=== PATIENT | male | born 1955 | race Caucasian/White ===

== ENCOUNTER → 2018-03-15 | Outpatient (CLI) | payer MEDICARE ==
[2018-03-15 10:44] LABS: Cholesterol 101 mg/dL (<200); HDL Cholesterol 34 mg/dL (40-60); LDL Cholesterol,Calculated 52 mg/dL (0-99); Triglycerides 74 mg/dL (<150)
== END | disposition home or self-care (01) ==
LOC: LABWHC1 08:50
PROVIDERS: ATTEND Internal Medicine Cardiovascular Disease
DX: I25.10 Atherosclerotic heart disease of native coronary artery without angina pectoris (principal)
CPT/HCPCS: 36415; 80061

== ENCOUNTER → 2020-03-20 | Outpatient (CLI) | payer MEDICARE ==
[2020-03-20 22:07] LABS: African American GFR (CKD) 72.6 (60.0-200.0); Albumin/Globulin Ratio 1.67 (1.60-3.17); Anion Gap 4.3 mmol/L (4.00-12.00); BUN/Creat Ratio 19.17 Ratio (12.00-20.00); Calcium 9.5 mg/dL (8.7-10.3); Carbon Dioxide 31.7 mmol/L (21.6-31.8); Chol/HDL Ratio 3.72; Globulin 2.4 g/dL (1.6-3.3); LDL Cholesterol,Calculated 45.2 mg/dL (0.0-131.0); Non-African American GFR(CKD) 62.6 (60.0-200.0); Potassium 4.1 mmol/L (3.5-5.5); Total Bilirubin 1.5 mg/dL (0.2-1.2); Total Protein 6.4 g/dL (6.2-8.2); VLDL Calculation 22.8 mg/dL (5.00-40.00)
== END | disposition home or self-care (01) ==
LOC: LABWHC1 11:06
PROVIDERS: ATTEND Internal Medicine Interventional Cardiology
DX: E78.2 Mixed hyperlipidemia (principal)
CPT/HCPCS: 36415; 80053; 80061

== ENCOUNTER → 2020-09-11 | Outpatient (CLI) | payer MEDICARE ==
[2020-09-11 23:17] LABS: African American GFR (CKD) 89.9 (60.0-200.0); Albumin 4.2 g/dL (3.80-4.90); Anion Gap 10.5 mmol/L (4.00-12.00); Calcium 9.3 mg/dL (8.7-10.3); Carbon Dioxide 20.5 mmol/L (21.6-31.8); Chol/HDL Ratio 3.37; Globulin 2.1 g/dL (1.6-3.3); LDL Cholesterol,Calculated 51.2 mg/dL (0.0-131.0); Non-African American GFR(CKD) 77.5 (60.0-200.0); Potassium 4.6 mmol/L (3.5-5.5); Total Bilirubin 1.3 mg/dL (0.2-1.2); Total Protein 6.3 g/dL (6.2-8.2); VLDL Calculation 19.8 mg/dL (5.00-40.00)
== END | disposition home or self-care (01) ==
LOC: LABWHC1 11:18
PROVIDERS: ATTEND Nurse Practitioner Adult Health
DX: E78.2 Mixed hyperlipidemia (principal); I10 Essential (primary) hypertension
CPT/HCPCS: 36415; 80053; 80061

== ENCOUNTER → 2021-03-27 | Outpatient (CLI) | payer MEDICARE ==
[2021-03-27 23:07] LABS: African American GFR (CKD) 99.6 (60.0-200.0); Albumin 3.9 g/dL (3.8-4.9); Albumin/Globulin Ratio 1.48 (1.60-3.17); Anion Gap 11.6 mmol/L (4.00-12.00); BUN/Creat Ratio 12.27 Ratio (12.00-20.00); Blood Urea Nitrogen 11.2 mg/dL (9.0-27.0); Calcium 9.5 mg/dL (8.7-10.3); Chol/HDL Ratio 2.39 Ratio; Globulin 2.6 g/dL (1.6-3.3); HDL Cholesterol 34.1 mg/dL (40.00-60.00); LDL Cholesterol,Calculated 31.2 mg/dL (0.0-131.0); Potassium 4.8 mmol/L (3.5-5.5); Total Bilirubin 0.8 mg/dL (0.30-1.20); Total Protein 6.5 g/dL (6.2-8.2); Triglycerides 81.2 mg/dL (0.00-149.00); VLDL Calculation 16.24 mg/dL (5.00-40.00)
== END | disposition home or self-care (01) ==
LOC: LABWHC1 08:35
PROVIDERS: ATTEND Nurse Practitioner Adult Health
DX: E78.2 Mixed hyperlipidemia (principal)
CPT/HCPCS: 36415; 80053; 80061

== ENCOUNTER → 2022-03-23 | Outpatient (CLI) | payer MEDICARE ==
[2022-03-23 11:35] LABS: ALT 12 U/L (10-49); AST 20 U/L (14-35); African American GFR (CKD) 101.4 (60.0-200.0); Albumin 3.9 g/dL (3.8-4.9); Albumin/Globulin Ratio 1.34 (1.60-3.17); Alkaline Phosphatase 131 U/L (41-126); BUN/Creat Ratio 15.56 Ratio (12.00-20.00); Calcium 9.3 mg/dL (8.7-10.3); Carbon Dioxide 24.9 mmol/L (20.0-27.5); Chloride 108 mmol/L (96-109); Chol/HDL Ratio 2.68 Ratio; Globulin 2.9 g/dL (1.6-3.3); Glucose 108 mg/dL (70-110); LDL Cholesterol,Calculated 37.6 mg/dL (0.0-131.0); Non-African American GFR(CKD) 87.5 (60.0-200.0); Potassium 4.4 mmol/L (3.5-5.5); Sodium 145 mmol/L (135-145); Total Protein 6.8 g/dL (6.2-8.2); VLDL Calculation 19.08 mg/dL (5.00-40.00)
== END | disposition home or self-care (01) ==
LOC: LABWHC1 08:00
PROVIDERS: ATTEND Internal Medicine Interventional Cardiology
DX: E78.2 Mixed hyperlipidemia (principal)
CPT/HCPCS: 36415; 80053; 80061

== ENCOUNTER → 2022-09-30 | Outpatient (CLI) | payer OTHER ==
[2022-09-30 15:51] LABS: ALT 24 U/L (10-49); AST 19 U/L (14-35); Chol/HDL Ratio 2.59 Ratio
== END | disposition home or self-care (01) ==
LOC: LABWHC1 06:59
PROVIDERS: ATTEND Internal Medicine Interventional Cardiology
DX: E78.2 Mixed hyperlipidemia (principal)
CPT/HCPCS: 36415; 80061; 84450; 84460

== ENCOUNTER 2022-11-10 09:25 | Emergency (ER) | payer MEDICARE, OTHER ==
[2022-11-10] MEDS ORDERED: SODIUM CHLORIDE 0.9% 1,000 ML IV STA (10:00)
[2022-11-10] MEDS ORDERED: MORPHINE SULFATE 4 MG/ML SYRINGE IVP STA (10:01)
[2022-11-10] MEDS ORDERED: KETOROLAC 15 MG/ML 1 ML VIAL IVP STA ×2 (10:01→14:45)
--- NOTE | 2022-11-10 10:21 | ED ---
Abdominal Pain HPI - General Chief Complaint: Abdominal Pain Stated Complaint: Groining/back pain Time Seen by Provider: 11/10/22 09:32 Source: patient, RN notes reviewed Mode of arrival: ambulatory Limitations: no limitations - History of Present Illness Initial Comments: This is a 67-year-old male who presents to the emergency department for pain in the right lower back radiating to the right groin. States that this started about a week ago, however yesterday it became severe. Reports a history of hernias and states that this feels the same. Denies any changes in bowel or bladder habits. He does have an appointment with Gen. surgery later this month, but states that he cannot wait this long. He has also not been definitively diagnosed with a new hernia in this area. Prior hernias have required surgical repair. However, a new hernia in this location has not been diagnosed. He was cleaning cement out of a ditch last week, shortly before symptoms started. He is taking Tylenol at home with no relief in symptoms. Denies any fevers, chills, sore throat, cough, dyspnea, chest pain, palpitations, nausea, vomiting, diarrhea, or headaches. MD Complaint: abdominal pain, other (Right sided back pain) Onset/Timin -: week(s) - Related Data Home Medications Medication Instructions Recorded Confirmed Aspirin EC [Ecotrin Low Dose] 81 mg PO HS 11/10/22 11/10/22 Atorvastatin Calcium [Lipitor] 40 mg PO HS 11/10/22 11/10/22 Nitroglycerin Sl Tabs [Nitrostat] 0.4 mg SUBLINGUAL Q5M PRN 11/10/22 11/10/22 amLODIPine [Norvasc] 10 mg PO HS 11/10/22 11/10/22 carvediloL [Coreg] 25 mg PO BID 11/10/22 11/10/22 lisinopriL [Prinivil] 20 mg PO BID 11/10/22 11/10/22 Previous Rx's Medication Instructions Recorded HYDROcodone/APAP 7.5-325MG [[place] 1 tab PO Q6HR PRN 3 Days #12 tab 11/10/22 7.5-325] Ketorolac [Toradol] 10 mg PO Q6HR PRN #12 tab 11/10/22 methocarbamoL [Robaxin-750] 1,500 mg PO TID PRN #20 tab 11/10/22 Allergies Allergy/AdvReac Type Severity Reaction Status Date / Time No Known Allergies Allergy Verified 11/10/22 14:42 Review of Systems ROS Statement: Those systems with pertinent positive or pertinent negative responses have been documented in the HPI. ROS Other: All systems not noted in ROS Statement are negative. Past Medical History Past Medical History: Chest Pain / Angina, COPD, Hyperlipidemia, Hypertension, Myocardial Infarction ([place]) History of Any Multi-Drug Resistant Organisms: None Reported Past Surgical History: Heart Catheterization With Stent Past Psychological History: No Psychological Hx Reported Smoking Status: Former smoker Past Alcohol Use History: Rare Past Drug Use History: Marijuana General Exam Limitations: no limitations General appearance: alert, in distress Head exam: Present: atraumatic, normocephalic, normal inspection Respiratory exam: Present: normal lung sounds bilaterally. Absent: respiratory distress, wheezes, rales, rhonchi, stridor Cardiovascular Exam: Present: regular rate, normal rhythm, normal heart sounds. Absent: systolic murmur, diastolic murmur, rubs, gallop, clicks GI/Abdominal exam: Present: soft, tenderness (RLQ), normal bowel sounds. Absent: distended Back exam: Present: normal inspection, tenderness (right lower back) Neurological exam: Present: alert, oriented X3, CN II-XII intact Psychiatric exam: Present: normal affect, normal mood Skin exam: Present: warm, dry, intact, normal color. Absent: rash Course Vital Signs 11/10/22 11/10/22 09:27 15:31 Temperature 97.5 F L 97.6 F Pulse Rate 75 56 L Respiratory 18 16 Rate Blood Pressure 140/89 123/82 O2 Sat by Pulse 98 95 Oximetry Medical Decision Making - Medical Decision Making This is a 67-year-old male who presents to the emergency department for right- sided back and right groin pain. Was pt. sent in by a medical professional or institution? @ -No Did you speak to anyone other than the patient for history? @ -No Did you review nursing and triage notes? @ -Yes, and I agree, it is accurate with regards to the patient's symptoms. Were old charts reviewed? @ -No Differential Diagnosis? @ -Differential Back Pain: Strain, zoster, cauda equina syndrome, epidural abscess, vertebral osteomyelitis, discitis, fracture, subluxation, disc herniation, DJD, spinal stenosis, dissection, AAA, pancreatitis, peptic ulcer disease, pyelonephritis, kidney stone, this is not meant to be an all-inclusive list. -Differential Abdominal Pain Men: Appendicitis, cholecystitis, diverticulosis, ischemic bowel, pancreatitis, hepatitis, UTI, gastroenteritis, AAA, incarcerated hernia, bowel obstruction, constipation, inflammatory bowel, hepatitis, peptic ulcer disease, splenic infarction, perforated viscus, testicular torsion, this is not meant to be an all-inclusive list EKG interpreted by me (3pts min.)? @ -Not obtained X-rays interpreted by me (1pt min.)? @ -Not obtained CT interpreted by me (1pt min.)? @ -Computed tomography scan of the abdomen and pelvis obtained. My interpretation identifies no evidence of bowel wall thickening, free air, or an inguinal hernia. U/S interpreted by me (1pt. min.)? @ -Not interpreted by me What testing was considered but not performed? (CT, X-rays, U/S, labs)? Why? @ -None What meds were considered but not given? Why? @ -None Did you discuss the management of the patient with other professionals? @ -No Did you reconcile home meds? @ -No Was smoking cessation discussed for >3mins.? @ -No Was critical care preformed (if so, how long)? @ -No Were there social determinants of health that impacted care today? How? (Homelessness, low income, unemployed, alcoholism, drug addiction, transportation, low edu. Level, literacy, decrease access to med. care, longterm, rehab)? @ -No Was there de-escalation of care discussed even if they declined? (Discuss DNR or withdrawal of care, Hospice)? @ -No What co-morbidities impacted this encounter? (DM, HTN, Smoking, COPD, CAD, Cancer, CVA, Hep., AIDS, mental health diagnosis, sleep apnea, morbid obesity)? @ -Morbid obesity Was patient admitted / discharged? @ -Discharged. Lab work obtained and found to be nonactionable. Computed tomography scan of the abdomen and pelvis was initially obtained. This was essentially unremarkable and did not demonstrate anything to account for the patient's symptoms. The patient was very concerned about his pain and believes that there was something wrong contributing to symptoms. Discussed that we can try an ultrasound, however I cannot guarantee that this will reveal anything different. Patient requests to proceed. Ultrasound demonstrated a benign mildly prominent lymph node. This may or may not be causing the patient's symptoms. Advised that his symptoms may also be musculoskeletal in nature. Given that the patient cannot take anti-inflammatories long-term due to cardiac issues, I was willing to give him a three-day prescription for [place]. Prescription for [place], Toradol, and Robaxin provided with dosing instructions reviewed. Advised that both the [place] and Robaxin may be sedating, and he should avoid driving or operating machinery when taking them. He was given information for local primary care providers. He is instructed to become established for ongoing medical management. He will also keep his appointment with general surgery later this month. Undiagnosed new problem with uncertain prognosis? @ -None Drug Therapy requiring intensive monitoring for toxicity (Heparin, Nitro, Insulin, Cardizem)? @ -None Were any procedures done? @ -None Diagnosis/symptom? @ -Right groin pain Acute, or Chronic, or Acute on Chronic? @ -Acute Uncomplicated (without systemic symptoms) or Complicated (systemic symptoms)? @ -Uncomplicated Side effects of treatment? @ -None Exacerbation, Progression, or Severe Exacerbation] @ -Not applicable Poses a threat to life or bodily function? @ -No Return precautions reviewed in depth, the patient is instructed to return to the emergency department with any new, worsening, or concerning symptoms. Patient verbalized understanding. This case was discussed in detail with the attending ED physician, Dr. Hwang. Presentation, findings, and treatment plan discussed in detail as well. - Lab Data Result diagrams: 11/10/22 10:11/10/22 10:09 Lab Results 11/10/22 11/10/22 11/10/22 Range/Units 10:09 10:09 10:09 WBC 9.6 (3.8-10.6) k/uL RBC 5.39 (4.30-5.90) m/uL Hgb 15.8 (13.0-17.5) gm/dL Hct 47.9 (39.0-53.0) % MCV 88.8 (80.0-100.0) fL MCH 29.2 (25.0-35.0) pg MCHC 32.9 (31.0-37.0) g/dL RDW 13.7 (11.5-15.5) % Plt Count 222 (150-450) k/uL MPV 8.7 Neutrophils % 74 % Lymphocytes % 16 % Monocytes % 4 % Eosinophils % 5 % Basophils % 0 % Neutrophils # 7.0 (1.3-7.7) k/uL Lymphocytes # 1.5 (1.0-4.8) k/uL Monocytes # 0.4 (0-1.0) k/uL Eosinophils # 0.5 (0-0.7) k/uL Basophils # 0.0 (0-0.2) k/uL Sodium 140 (137-145) mmol/L Potassium 4.6 (3.5-5.1) mmol/L Chloride 109 H (98-107) mmol/L Carbon Dioxide 24 (22-30) mmol/L Anion Gap 7 mmol/L BUN 12 (9-20) mg/dL Creatinine 0.77 (0.66-1.25) mg/dL Est GFR (CKD-EPI)AfAm >90 (>60 ml/min/1.73 sqM) Est GFR (CKD-EPI)NonAf >90 (>60 ml/min/1.73 sqM) Glucose 118 H (74-99) mg/dL Plasma Lactic Acid Gregorio (0.7-2.0) mmol/L Calcium 9.2 (8.4-10.2) mg/dL Total Bilirubin 1.6 H (0.2-1.3) mg/dL AST 25 (17-59) U/L ALT 21 (4-49) U/L Alkaline Phosphatase 119 (38-126) U/L Total Protein 6.8 (6.3-8.2) g/dL Albumin 3.8 (3.5-5.0) g/dL Urine Color Light Yellow Urine Appearance Clear (Clear) Urine pH 6.0 (5.0-8.0) Ur Specific [place] 1.031 (1.001-1.035) Urine Protein Negative (Negative) Urine Glucose (UA) Negative (Negative) Urine Ketones Negative (Negative) Urine Blood Trace H (Negative) Urine Nitrite Negative (Negative) Urine Bilirubin Negative (Negative) Urine Urobilinogen <2.0 (<2.0) mg/dL Ur Leukocyte Esterase Negative (Negative) Urine RBC 1 (0-5) /hpf Urine WBC <1 (0-5) /hpf Urine Mucus Rare H (None) /hpf 06/13/23 Range/Units 10:09 WBC (3.8-10.6) k/uL RBC (4.30-5.90) m/uL Hgb (13.0-17.5) gm/dL Hct (39.0-53.0) % MCV (80.0-100.0) fL MCH (25.0-35.0) pg MCHC (31.0-37.0) g/dL RDW (11.5-15.5) % Plt Count (150-450) k/uL MPV Neutrophils % % Lymphocytes % % Monocytes % % Eosinophils % % Basophils % % Neutrophils # (1.3-7.7) k/uL Lymphocytes # (1.0-4.8) k/uL Monocytes # (0-1.0) k/uL Eosinophils # (0-0.7) k/uL Basophils # (0-0.2) k/uL Sodium (137-145) mmol/L Potassium (3.5-5.1) mmol/L Chloride (98-107) mmol/L Carbon Dioxide (22-30) mmol/L Anion Gap mmol/L BUN (9-20) mg/dL Creatinine (0.66-1.25) mg/dL Est GFR (CKD-EPI)AfAm (>60 ml/min/1.73 sqM) Est GFR (CKD-EPI)NonAf (>60 ml/min/1.73 sqM) Glucose (74-99) mg/dL Plasma Lactic Acid Gregorio 1.4 (0.7-2.0) mmol/L Calcium (8.4-10.2) mg/dL Total Bilirubin (0.2-1.3) mg/dL AST (17-59) U/L ALT (4-49) U/L Alkaline Phosphatase (38-126) U/L Total Protein (6.3-8.2) g/dL Albumin (3.5-5.0) g/dL Urine Color Urine Appearance (Clear) Urine pH (5.0-8.0) Ur Specific [place] (1.001-1.035) Urine Protein (Negative) Urine Glucose (UA) (Negative) Urine Ketones (Negative) Urine Blood (Negative) Urine Nitrite (Negative) Urine Bilirubin (Negative) Urine Urobilinogen (<2.0) mg/dL Ur Leukocyte Esterase (Negative) Urine RBC (0-5) /hpf Urine WBC (0-5) /hpf Urine Mucus (None) /hpf - Radiology Data Radiology results: report reviewed, image reviewed Disposition Clinical Impression: Right groin pain Disposition: HOME SELF-CARE Instructions (If sedation given, give patient instructions): Groin Pain (ED) Additional Instructions: Return to the emergency department with any new, worsening, or concerning symptoms. Take the Toradol with Tylenol as needed for pain relief. You can take the Robaxin as 2 tablets up to 3 times daily. Be aware that this may make you drowsy and you should not take it before driving. Take the [place] sparingly as well, as this can also make you drowsy. I have provided you with a list of local primary care providers. Dr. Salter's office is accepting new patients and they should be able to get you scheduled fairly quickly. Follow up with general surgery as scheduled. Prescriptions: HYDROcodone/APAP 7.5-325MG [[place] 7.5-325] 1 tab PO Q6HR PRN 3 Days #12 tab PRN Reason: Pain methocarbamoL [Robaxin-750] 1,500 mg PO TID PRN #20 tab PRN Reason: Pain Ketorolac [Toradol] 10 mg PO Q6HR PRN #12 tab PRN Reason: Pain Is patient prescribed a controlled substance at d/c from ED?: Yes When asked, does pt state using other controlled substances?: No If prescribed controlled substance>3 days was MAPS reviewed?: Prescribed <3 Days Referrals: None,Stated [Primary Care Provider] - 1-2 days Robbie Salter MD [STAFF PHYSICIAN] - 1-2 days Forms: Area PCPs
[2022-11-10 10:28] LABS: Basophils % (A) 0 %; Eosinophils # (A) 0.5 k/uL (0-0.7); Eosinophils % (A) 5 %; HCT 47.9 % (39.0-53.0); HGB 15.8 gm/dL (13.0-17.5); Lymphocytes # (A) 1.5 k/uL (1.0-4.8); Lymphocytes % (A) 16 %; MCH 29.2 pg (25.0-35.0); MCHC 32.9 g/dL (31.0-37.0); MCV 88.8 fL (80.0-100.0); Mean Platelet Volume 8.7; Monocytes # (A) 0.4 k/uL (0-1.0); Monocytes % (A) 4 %; Neutrophils % (A) 74 %; Platelet Count 222 k/uL (150-450); RBC 5.39 m/uL (4.30-5.90); RDW 13.7 % (11.5-15.5); WBC 9.6 k/uL (3.8-10.6)
[2022-11-10 10:43] LABS: ALT 21 U/L (4-49); AST 25 U/L (17-59); African American GFR (CKD) >90 (>60 ml/min/1.73 sqM); Albumin 3.8 g/dL (3.5-5.0); Alkaline Phosphatase 119 U/L (38-126); Anion Gap 7 mmol/L; Blood Urea Nitrogen 12 mg/dL (9-20); Calcium 9.2 mg/dL (8.4-10.2); Carbon Dioxide 24 mmol/L (22-30); Chloride 109 mmol/L (98-107); Glucose 118 mg/dL (74-99); Non-African American GFR(CKD) >90 (>60 ml/min/1.73 sqM); Potassium 4.6 mmol/L (3.5-5.1); Sodium 140 mmol/L (137-145); Total Bilirubin 1.6 mg/dL (0.2-1.3); Total Protein 6.8 g/dL (6.3-8.2)
[2022-11-10 12:08] LABS: Appearance,Urine Clear (Clear); Bilirubin,Urine Negative (Negative); Blood,Urine Trace (Negative); Color,Urine Light Yellow; Glucose,Urine (UA) Negative (Negative); Ketones,Urine Negative (Negative); Leukocyte Esterase,Urine Negative (Negative); Mucus,Urine Rare /hpf; Nitrite,Urine Negative (Negative); Protein,Urine Negative (Negative); RBC,Urine 1 /hpf (0-5); Specific Gravity,Urine 1.031 (1.001-1.035); Urobilinogen,Urine <2.0 mg/dL (<2.0); WBC,Urine <1 /hpf (0-5)
--- NOTE | 2022-11-10 12:10 | CT ---
EXAMINATION TYPE: CT abdomen pelvis w con DATE OF EXAM: 11/10/2022 COMPARISON: 12/17/2014 HISTORY: 67-year-old male RLQ PAIN AND RIGHT INGUINAL PAIN X2 WEEKS TECHNIQUE: Contiguous axial scanning of the abdomen and pelvis following administration of 100 ml Iso tyson 300 IV contrast. Delayed images through the kidneys and coronal/sagittal reconstructions perform ed. CT DLP: 2204.3 mGycm Automated exposure control for dose reduction was used. FINDINGS: LUNG BASES: Coronary artery calcifications. Borderline heart size. Reticular densities could represen t scarring or atelectasis. Emphysematous change. No pleural effusion. LIVER/GB: No significant abnormality is appreciated. PANCREAS: No significant abnormality is seen. SPLEEN: No significant abnormality is seen. ADRENALS: No significant abnormality is seen. KIDNEYS: Small bilateral parapelvic cysts. The larger 2.7 cm cortical cyst lower pole right kidney. S ymmetric uptake and excretion of contrast from both kidneys. BOWEL: Tiny hernia. No dilated small bowel, free fluid, or free air. Scattered colonic diverticulosis , greatest in the mildly redundant sigmoid colon. No pericolonic inflammatory change seen. Mild stool burden. Normal appendix. LYMPH NODES: No significant abnormality is seen. OTHER: Moderate atherosclerotic calcifications infrarenal abdominal aorta and iliac arteries. Mild fu siform dilatation up to 2.4 cm without aneurysm. PELVIS: Bladder partially distended. Prostate gland measures 4.6 cm wide. Pelvic phleboliths. No abno rmal fluid collection in the pelvis or pelvic lymphadenopathy. No inguinal or femoral canal hernia se en. BONES: Moderate spondylotic change throughout the visualized spine. IMPRESSION: 1. GENERALIZED COLONIC DIVERTICULOSIS, GREATEST IN THE SIGMOID COLON. NO FINDINGS OF ACUTE DIVERTICUL ITIS. 2. NORMAL APPENDIX. NO INGUINAL OR FEMORAL CANAL HERNIA SEEN. 3. SOME ADDITIONAL INCIDENTAL FINDINGS MENTIONED ABOVE.
[2022-11-10] MEDS ORDERED: ORPHENADRINE 30 MG/ML 2 ML VIAL IVP STA (12:43)
--- NOTE | 2022-11-10 14:10 | US ---
EXAMINATION TYPE: US groin RT DATE OF EXAM: 11/10/2022 COMPARISON: CT 11/10/2022 CLINICAL INDICATION: Male, 67 years old with history of Right groin pain; RT GROIN PAIN RADIATING FRO M RT SCROTUM TO LATERAL LUMBAR SPINE TECHNIQUE: TRANSABDOMINAL IMAGING ON RT GROIN OBTAINED WITH AND WITHOUT VALSALVA FINDINGS/IMPRESSION: No hernia is seen consistent with results from CT. Mildly prominent benign appe aring lymph node measuring 2.2 x 0.8 x 1.8 cm with central fatty hilum.
[2022-11-10] MEDS ORDERED: HYDROmorphone 1 MG/ML 1 ML SYRINGE IVP STA (14:45)
[2022-11-10 15:33] VITALS: BP 123/82; PULSE 56; RESP 16; TEMP 97.6
== END 2022-11-10 15:33 | disposition home or self-care (01) ==
LOC: EC 09:25
DX: K57.30 Diverticulosis of large intestine without perforation or abscess without bleeding (principal); J44.9 Chronic obstructive pulmonary disease, unspecified; E78.5 Hyperlipidemia, unspecified; I10 Essential (primary) hypertension; I25.2 Old myocardial infarction; F12.90 Cannabis use, unspecified, uncomplicated; Z87.891 Personal history of nicotine dependence; Z79.82 Long term (current) use of aspirin; Z79.899 Other long term (current) drug therapy
CPT/HCPCS: 99284; 96374; 96375 ×3; 96361; 36415; 80053; 83605; 85025; 81001; 76882; 74177; 96376; J2270; J2360; J1170; J1885; Q9967

== ENCOUNTER → 2022-12-28 | Outpatient (CLI) | payer MEDICARE ==
[2022-12-28 13:29] LABS: African American GFR (CKD) >90 (>60 ml/min/1.73 sqM); Blood Urea Nitrogen 12 mg/dL (9-20); Non-African American GFR(CKD) >90 (>60 ml/min/1.73 sqM)
--- NOTE | 2022-12-28 15:46 | CT ---
EXAMINATION TYPE: CT abdomen pelvis w con DATE OF EXAM: 12/28/2022 COMPARISON: 11/10/2022 INDICATION: right sided abdominal pain DLP: 2156.6 mGycm, Automated exposure control for dose reduction was used. CONTRAST: 100 mL of Isovue 300. Study performed with Oral Contrast TECHNIQUE: Axial images were obtained from above the diaphragm to the pubic rami in the axial plane a t 5 mm thick sections. Reconstructed images are reviewed on the computer in the coronal plane. FINDINGS: Limited CT sections are obtained the lung bases. The lung bases are clear. CT ABDOMEN: Liver: Normal Spleen: Normal Pancreas: Normal Adrenal glands: The adrenal glands are normal. Gallbladder: Normal Kidneys: No masses are evident. No hydronephrosis is present. No cysts are present. Delayed images were obtained through the kidneys, which remain unremarkable. Aorta: Vascular calcification is within the aorta. Inferior vena cava: Normal. CT PELVIS: Loops of bowel within the abdomen and pelvis are normal. Scattered diverticuli within the sigmoid col on Oral contrast extends to the sigmoid colon. There are loops of bowel which are incompletely dist ended or lack oral contrast limiting their evaluation. Appendix: Normal as visualized. Urinary bladder: Normal. Genitourinary structures: Prostate is somewhat prominent. Osseous structures: No suspicious lytic or sclerotic lesions. Facet degenerative changes are in the l ower lumbar spine. IMPRESSIONS: 1. Sigmoid diverticulosis without evidence of acute diverticulitis. 2. Normal-appearing appendix
== END | disposition home or self-care (01) ==
LOC: RADCTMAIN 12:45
PROVIDERS: ATTEND Family Medicine
DX: K57.30 Diverticulosis of large intestine without perforation or abscess without bleeding (principal); R10.9 Unspecified abdominal pain
CPT/HCPCS: 82565; 84520; 74177; 36415; Q9967

== ENCOUNTER → 2023-04-01 | Outpatient (CLI) | payer MEDICARE ==
[2023-04-01 16:21] LABS: ALT 19 U/L (10-49); AST 18 U/L (14-35); Albumin 3.9 d/dL (3.8-4.9); Albumin/Globulin Ratio 1.56 Ratio (1.60-3.17); Alkaline Phosphatase 133 U/L (41-126); BUN/Creat Ratio 15.78 Ratio (12.00-20.00); Blood Urea Nitrogen 14.2 mg/dL (9.0-27.0); Calcium 9.8 mg/dL (8.7-10.3); Carbon Dioxide 26.4 mmol/L (21.6-31.8); Chloride 106 mmol/L (96-109); Chol/HDL Ratio 2.63 Ratio; Globulin 2.5 d/dL (1.6-3.3); Glucose 105 mg/dL (70-110); LDL Cholesterol,Calculated 35.2 mg/dL (0.0-131.0); Potassium 4.9 mmol/L (3.5-5.5); Sodium 143 mmol/L (135-145); Total Bilirubin 1.3 mg/dL (0.3-1.2); Total Protein 6.4 d/dL (6.2-8.2)
== END | disposition home or self-care (01) ==
LOC: LABWHC1 07:33
PROVIDERS: ATTEND Internal Medicine Interventional Cardiology
DX: I10 Essential (primary) hypertension (principal); E78.2 Mixed hyperlipidemia
CPT/HCPCS: 36415; 80053; 80061

== ENCOUNTER → 2023-04-20 | Outpatient (CLI) | payer MEDICARE ==
--- NOTE | 2023-04-20 22:08 | CTL ---
EXAMINATION TYPE: CT Low Dose Lung DATE OF EXAM ORDERED: 04/20/2023 HISTORY: 68-year-old male Z87.891 personal hx tobacco use, former smoker, approximately 23 pack-year history. Lung cancer screening CT DLP: 139.[address] CTDI: 4.0 mGy Automated exposure control for dose reduction was used. SCREENING VISIT: Baseline COMPARISON: None TECHNIQUE: Low dose computed tomography scan was performed through the chest with coronal and sagitta l reconstructions. CT DIAGNOSTIC QUALITY: Satisfactory FINDINGS: The heart is upper limits of normal in size without pericardial effusion. Extensive three-vessel vin nary artery calcifications are present. Mild aneurysm ascending aorta 4.1 cm. Mild atherosclerotic arch calcifications. Conventional arch ves tamar branching anatomy. Ectatic lower descending thoracic aorta up to 2.6 cm. Large caliber to the main right and left pulmonary arteries measuring up to 2.7 cm each suggesting un derlying pulmonary arterial hypertension. No thoracic lymph adenopathy by CT size criteria. Mild subpleural reticulations in the lower lungs. Mild diffuse bronchial wall thickening. Mild upper lung emphysematous change. There is strandy scarring or atelectasis in the lower lungs. No consolidat ion or pleural effusion. * A couple benign calcified granulomas posterior left lower lobe, axial image 146. * 6 mm medial right basilar pulmonary nodule, axial image 205. * No other suspicious pulmonary nodule is identified. Visualized upper abdomen shows no gross abnormality. Bones: Moderate degenerative disc disease lower thoracic spine. IMPRESSION: 1. Lung RADS Category 3 (probably benign, 1-2% chance of malignancy); a 6 mm pulmonary nodule at the medial right base. 2. There may be some mild interstitial fibrosis in the lower lungs along with mild emphysema. 3. Correlate for underlying pulmonary hypertension. 4. Mild aneurysm ascending aorta 4.1 cm. 5. Three-vessel coronary artery calcifications. CT LUNG RAD AND CT CHEST RECOMMENDATION: Lung-Rad 3 Probably Benign: 6 month follow-up LDCT. S Modifier (other clinically significant findings): None
== END | disposition home or self-care (01) ==
LOC: RADCTMAIN 10:45
PROVIDERS: ATTEND Family Medicine
DX: Z12.2 Encounter for screening for malignant neoplasm of respiratory organs (principal); I71.21 Aneurysm of the ascending aorta, without rupture; I25.10 Atherosclerotic heart disease of native coronary artery without angina pectoris; Z87.891 Personal history of nicotine dependence
CPT/HCPCS: 71271

== ENCOUNTER 2023-09-07 09:26 | Day surgery (SDC) | payer MEDICARE ==
[2023-09-03 10:48] VITALS: BMI 37.5
[2023-09-07] MEDS: LACTATED RINGERS 1,000 ML IV SCH (10:04)
[2023-09-07 10:28] VITALS: TEMP 97.7
[2023-09-07] MEDS ORDERED: fentaNYL (PF) 50 MCG/ML 2 ML AMP ONE (10:42)
[2023-09-07] MEDS ORDERED: PROPOFOL 10 MG/ML 20 ML VIAL IV ONE (10:42)
[2023-09-07] MEDS ORDERED: MIDAZOLAM 2 MG/2 ML VIAL ONE (10:42)
--- NOTE | 2023-09-07 10:47 | P.GSHP ---
History of Present Illness H&P Date: 09/07/23 Chief Complaint: Abnormal stool test 68-year-old male here for colonoscopy. Had recent stool test that was abnormal. He does not see any rectal bleeding. No family history of colon cancer. Last colonoscopy 20 years ago was normal. Past Medical History Past Medical History: Chest Pain / Angina, COPD, Hyperlipidemia, Hypertension, Myocardial Infarction ([place]), Skin Disorder Additional Past Medical History / Comment(s): 08/2023- "I took a colon test at home and they said it came back positive.""pimples all over butt and chest." "I pick at them." Last Myocardial Infarction Date:: 2009 History of Any Multi-Drug Resistant Organisms: None Reported Past Surgical History: Heart Catheterization With Stent, Hernia Repair Additional Past Surgical History / Comment(s): "Lower on both sides hernia." Additional Past Anesthesia/Blood Transfusion Reaction / Comment(s): No hx of blood transfusion. Date of Last Stent Placement:: 01/28/2010 Smoking Status: Former smoker - Past Family History Father Family Medical History: No Reported History Medications and Allergies Home Medications Medication Instructions Recorded Confirmed Type Aspirin EC [Ecotrin Low Dose] 81 mg PO HS 11/10/22 09/07/23 History Atorvastatin Calcium [Lipitor] 40 mg PO HS 11/10/22 09/07/23 History Nitroglycerin Sl Tabs [Nitrostat] 0.4 mg SUBLINGUAL Q5M PRN 11/10/22 09/03/23 History amLODIPine [Norvasc] 10 mg PO QAM 11/10/22 09/07/23 History carvediloL [Coreg] 25 mg PO BID 11/10/22 09/07/23 History lisinopriL [Prinivil] 20 mg PO BID 11/10/22 09/07/23 History Acetaminophen [Tylenol Arthritis] 1,300 mg PO Q8H 09/03/23 09/03/23 History B12 (Dose Unknown) 1 dose PO QAM 09/03/23 09/03/23 History Allergies Allergy/AdvReac Type Severity Reaction Status Date / Time No Known Allergies Allergy Verified 09/07/23 10:00 Surgical - Exam Vital Signs Temp Pulse Resp BP Pulse Ox 97.7 F 67 18 155/84 95 09/07/23 10:05 09/07/23 10:05 09/07/23 10:05 09/07/23 10:05 09/07/23 10:05 Physical exam: General: Well-developed, well-nourished HEENT: Normocephalic, sclerae nonicteric Abdomen: Nontender, nondistended Extremities: No edema Neuro: Alert and oriented anymore Robbie Assessment and Plan (1) Colon cancer screening Narrative/Plan: Will proceed with colonoscopy at this time. Current Visit: Yes Status: Acute Code(s): Z12.11 - ENCOUNTER FOR SCREENING FOR MALIGNANT NEOPLASM OF COLON SNOMED Code(s): 490798929
--- NOTE | 2023-09-07 10:59 | P.PCN ---
Date of Procedure: 09/07/23 Procedure(s) Performed: PREOPERATIVE DIAGNOSIS: Abnormal stool test POSTOPERATIVE DIAGNOSIS: Diverticulosis PROCEDURE: Colonoscopy ANESTHESIA: MAC SURGEON: Prince Teran M.D. SPECIMENS: None ENDOSCOPIC PROCEDURE: The patient was placed on the endoscopy table in the left decubitus position. The Olympus colonoscope was inserted into the anus and passed under direct visualization to the base of the cecum. The appendiceal orifice was visualized. From that point the scope was slowly withdrawn inspecti ng all surfaces carefully. There were no neoplastic inflammatory or polypoid lesions throughout the cecum, ascending, transverse, descending, sigmoid and rectum. There was scattered left-sided diverticulosis noted. Digital rectal examination was normal. The patient was taken to the recovery room in stable condition per anesthesia guidelines. RECOMMENDATIONS: Resume diet. Repeat colonoscopy 7-10 years.
[2023-09-07 11:49] VITALS: BP 127/67; PULSE 67; RESP 18
== END 2023-09-07 11:47 | disposition home or self-care (01) ==
LOC: ORWHC2ENDO 09:26
PROVIDERS: ATTEND Surgery
DX: K57.30 Diverticulosis of large intestine without perforation or abscess without bleeding (principal); I25.10 Atherosclerotic heart disease of native coronary artery without angina pectoris; I10 Essential (primary) hypertension; E78.5 Hyperlipidemia, unspecified; I25.2 Old myocardial infarction; J44.9 Chronic obstructive pulmonary disease, unspecified; Z98.890 Other specified postprocedural states; Z87.891 Personal history of nicotine dependence; Z79.82 Long term (current) use of aspirin; Z79.899 Other long term (current) drug therapy; Z86.73 Personal history of transient ischemic attack (TIA), and cerebral infarction without residual deficits
CPT/HCPCS: 45378; J2250; J3010; J2704

== ENCOUNTER → 2023-10-20 | Outpatient (CLI) | payer MEDICARE ==
--- NOTE | 2023-10-21 17:53 | CTL ---
EXAMINATION TYPE: CT Low Dose Lung DATE OF EXAM: 10/20/2023 11:58 AM CLINICAL INDICATION:Male, 68 years old with history of R91.1 NODULE; smoker , history of tobacco use. COMPARISON: 04/20/2023 TECHNIQUE: Multiple axial non-contrast scans were obtained from approximately the lung apices through the upper abdomen. Coronal and sagittal reformatted images were obtained. Low dose technique was uti lized. CT DLP: 147.1 mGycm, Automated exposure control for dose reduction was used. CT Contrast: Contrast used: None Oral contrast used: None FINDINGS: ======== Lack of intravenous contrast and low dose technique limits the evaluation of the vascular and soft ti ssue structures. LUNGS: No evidence of pulmonary fibrosis. No evidence of focal consolidation, pneumothorax or pleural effusion. Centrilobular emphysema changes. Stable pulmonary nodules in the left lung base and nonvisualization of the pulmonary nodule in the ri ght lung base likely representing atelectasis on prior. No new or enlarging pulmonary nodules. AIRWAY: Patent and unremarkable. HEART: Heart is mildly enlarged for size. Atherosclerosis of the coronary arteries. MEDIASTINUM: No gross evidence of adenopathy. VASCULATURE: No aortic aneurysm. MUSCULOSKELETAL: No acute osseous abnormalities SOFT TISSUES/LYMPH NODES: Unremarkable. LOWER NECK: No significant findings. UPPER ABDOMEN: No significant findings. IMPRESSION: 1. The right lung base nodule seen on prior is no longer visualized and likely represent atelectasis. Stable left lung base nodules. No new or enlarging pulmonary nodules. 2. Mild emphysema. CT LUNG RAD AND CT CHEST RECOMMENDATION: Lung-Rad 2 Benign Appearance or Behavior: Continue annual sc reening with LDCT in 12 months. S Modifier (other clinically significant findings): None Recommend smoking cessation (if current smoker), or continuation of smoking cessation (if prior smoke r). Annual screening for lung cancer with low-dose computed tomography is recommended in adults ages 55 to 77 years who have a 30 pack-year smoking history and currently smoke or have quit within the pa st 15 years. Screening should be discontinued once a person has not smoked for 15 years or develops a health problem that substantially limits life expectancy or the ability or willingness to have curat sarah lung surgery. Lung rads 2021 [email or web address]
== END | disposition home or self-care (01) ==
LOC: RADCTMAIN 11:22
PROVIDERS: ATTEND Family Medicine
DX: R91.8 Other nonspecific abnormal finding of lung field (principal); J43.2 Centrilobular emphysema; Z87.891 Personal history of nicotine dependence
CPT/HCPCS: 71271

== ENCOUNTER → 2023-11-08 | Outpatient (CLI) | payer MEDICARE ==
[2023-11-08 15:54] LABS: Chol/HDL Ratio 2.53 Ratio; LDL Cholesterol,Calculated 39.7 mg/dL (0.0-131.0)
[2023-11-08 16:13] LABS: ALT 18 U/L (10-49); AST 24 U/L (14-35)
== END | disposition home or self-care (01) ==
LOC: LABWHC1 08:29
PROVIDERS: ATTEND Nurse Practitioner Adult Health
DX: E78.2 Mixed hyperlipidemia (principal)
CPT/HCPCS: 36415; 80061; 84450; 84460

== ENCOUNTER → 2024-02-03 | Outpatient (CLI) | payer MEDICARE ==
[2024-02-03 16:39] LABS: Blood Urea Nitrogen 9.9 mg/dL (9.0-27.0); Chol/HDL Ratio 2.62 Ratio; Glucose 109 mg/dL (70-110); LDL Cholesterol,Calculated 32.6 mg/dL (0.0-131.0); VLDL Calculation 18.14 mg/dL (5.00-40.00)
[2024-02-03 16:40] LABS: ALT 23 U/L (10-49); AST 15 U/L (14-35); Albumin/Globulin Ratio 1.74 Ratio (1.60-3.17); Alkaline Phosphatase 127 U/L (41-126); Calcium 9.2 mg/dL (8.7-10.3); Carbon Dioxide 24.8 mmol/L (21.6-31.8); Chloride 107 mmol/L (96-109); Globulin 2.3 g/dL (1.6-3.3); Potassium 4.6 mmol/L (3.5-5.5); Sodium 141 mmol/L (135-145); Total Bilirubin 1.7 mg/dL (0.3-1.2); Total Protein 6.3 g/dL (6.2-8.2)
== END | disposition home or self-care (01) ==
LOC: LABWHC1 08:04
PROVIDERS: ATTEND Nurse Practitioner Adult Health
DX: I10 Essential (primary) hypertension (principal); E78.2 Mixed hyperlipidemia
CPT/HCPCS: 36415; 80053; 80061

== ENCOUNTER → 2024-08-08 | Outpatient (CLI) | payer MEDICARE ==
[2024-08-08 15:08] LABS: ALT 20 U/L (10-49); AST 21 U/L (14-35); LDL Cholesterol,Calculated 26.8 mg/dL (0.0-131.0)
== END | disposition home or self-care (01) ==
LOC: LABWHC1 08:06
PROVIDERS: ATTEND Internal Medicine Interventional Cardiology
DX: E78.2 Mixed hyperlipidemia (principal)
CPT/HCPCS: 36415; 80061; 84450; 84460

== ENCOUNTER 2024-12-27 08:47 | Observation (INO) | payer MEDICARE ==
[2024-12-27 09:26] LABS: Basophils # (A) 0.09 10*3/uL (0.00-0.10); Basophils % (A) 0.8 %; Eosinophils # (A) 0.44 10*3/uL (0.04-0.35); Eosinophils % (A) 4.0 %; HCT 47.0 % (39.6-50.0); HGB 16.3 g/dL (13.0-17.0); Lymphocytes # (A) 1.46 10*3/uL (0.90-5.00); Lymphocytes % (A) 13.3 %; MCH 30.4 pg (27.0-32.0); MCHC 34.7 g/dL (32.0-37.0); MCV 87.7 fL (80.0-97.0); Monocytes # (A) 0.70 10*3/uL (0.20-1.00); Monocytes % (A) 6.4 %; Neutrophils # (A) 8.21 10*3/uL (1.80-7.70); Neutrophils % (A) 75.1 %; Platelet Count 205 10*3/uL (140-440); RBC 5.36 10*6/uL (4.40-5.60); RDW 12.9 % (11.5-14.5); WBC 10.94 10*3/uL (4.50-10.00)
--- NOTE | 2024-12-27 09:30 | ED ---
Chest Pain HPI - General Chief Complaint: Chest Pain Stated Complaint: chest pain Time Seen by Provider: 12/27/24 09:00 Source: patient Mode of arrival: ambulatory Limitations: no limitations - History of Present Illness Initial Comments: 69-year-old male with past medical history of coronary artery disease who presents to the emergency department with chest pain. States that started while he was dropping his grandson off at school. He describes it as a pressure sensation in his chest. He does have history of previous WI with 3 stent placed in 2009. States that he has not had any chest pain since his WI at that time. States that his pain feels similar. He tried to take a nitro but realized that the medication had turned into a powder. Pain is present at this time. He does admit to mild shortness of breath. No nausea or vomiting. He grades his pain as 7 out of 10. He denies fevers, chills or cough. No numbness, tingling or weakness in his extremities. Does admit that the pain goes into his left arm. No ripping or tearing sensation to his back. No other alleviating, precipitating or modifying factors - Related Data Home Medications Medication Instructions Recorded Confirmed Aspirin EC [Ecotrin Low Dose] 81 mg PO HS@199911/10/22 12/27/24 Atorvastatin Calcium [Lipitor] 40 mg PO HS@199911/10/22 12/27/24 Nitroglycerin Sl Tabs [Nitrostat] 0.4 mg SL Q5M PRN 11/10/22 12/27/24 carvediloL [Coreg] 25 mg PO BID@08,199911/10/22 12/27/24 lisinopriL [Prinivil] 20 mg PO BID@0800,199911/10/22 12/27/24 Tamsulosin [Flomax] 0.4 mg PO DAILY@0800 12/27/24 12/27/24 methocarbamoL [Robaxin-750] 750 mg PO TID PRN 12/27/24 12/27/24 Previous Rx's Medication Instructions Recorded Clopidogrel [Plavix] 75 mg PO DAILY #90 tab 12/29/24 Isosorbide Mononitrate ER [Imdur] 30 mg PO DAILY #90 tab 12/29/24 amLODIPine [Norvasc] 5 mg PO HS@1999 #90 tab 12/29/24 Allergies Allergy/AdvReac Type Severity Reaction Status Date / Time No Known Allergies Allergy Verified 12/27/24 08:50 Review of Systems ROS Statement: Those systems with pertinent positive or pertinent negative responses have been documented in the HPI. ROS Other: All systems not noted in ROS Statement are negative. Past Medical History Past Medical History: Chest Pain / Angina, COPD, Hyperlipidemia, Hypertension, Myocardial Infarction ([place]), Skin Disorder Additional Past Medical History / Comment(s): 08/2023- "I took a colon test at home and they said it came back positive.""pimples all over butt and chest." "I pick at them." Last Myocardial Infarction Date:: 2009 History of Any Multi-Drug Resistant Organisms: None Reported Past Surgical History: Heart Catheterization With Stent, Hernia Repair Additional Past Surgical History / Comment(s): "Lower on both sides hernia." Additional Past Anesthesia/Blood Transfusion Reaction / Comment(s): No hx of blood transfusion. Date of Last Stent Placement:: 01/28/2010 Past Psychological History: No Psychological Hx Reported Smoking Status: Former smoker Past Alcohol Use History: None Reported Past Drug Use History: None Reported - Past Family History Father Family Medical History: No Reported History General Exam Limitations: no limitations General appearance: alert, in no apparent distress Head exam: Present: atraumatic, normocephalic, normal inspection Eye exam: Present: normal appearance, PERRL, EOMI. Absent: scleral icterus, conjunctival injection, periorbital swelling ENT exam: Present: normal exam, mucous membranes moist Neck exam: Present: normal inspection. Absent: tenderness, meningismus, lymphadenopathy Respiratory exam: Present: normal lung sounds bilaterally. Absent: respiratory distress, wheezes, rales, rhonchi, stridor Cardiovascular Exam: Present: regular rate, normal rhythm, normal heart sounds. Absent: systolic murmur, diastolic murmur, rubs, gallop, clicks GI/Abdominal exam: Present: soft, normal bowel sounds. Absent: distended, tenderness, guarding, rebound, rigid Extremities exam: Present: normal inspection, full ROM, normal capillary refill. Absent: tenderness, pedal edema, joint swelling, calf tenderness Back exam: Present: normal inspection Neurological exam: Present: alert, oriented X3, CN II-XII intact Psychiatric exam: Present: normal affect, normal mood Skin exam: Present: warm, dry, intact, normal color. Absent: rash Course Vital Signs 12/27/24 12/27/24 12/27/24 08:48 09:18 09:43 Temperature 97.9 F Pulse Rate 82 80 72 Respiratory 22 18 18 Rate Blood Pressure 151/91 145/90 141/82 O2 Sat by Pulse 96 94 L 96 Oximetry 12/27/24 12/27/24 12/27/24 09:59 10:18 11:58 Temperature Pulse Rate 73 71 74 Respiratory 18 18 18 Rate Blood Pressure 125/74 142/96 O2 Sat by Pulse 94 L 94 L 96 Oximetry Chest Pain MDM - MDM Was pt. sent in by a medical professional or institution (, PA, AIR SURVEILLANCE OPERATOR, urgent care, hospital, or long-term...) When possible be specific @ -No Did you speak to anyone other than the patient for history (EMS, parent, family, police, friend...)? What history was obtained from this source @ -No Did you review nursing and triage notes (agree or disagree)? Why? @ -I reviewed and agree with nursing and triage notes Were old charts reviewed (outside hosp., previous admission, EMS record, old EKG, old radiological studies, urgent care reports/EKG's, long-term records)? Report findings @ -No old charts were reviewed Differential Diagnosis (chest pain, altered mental status, abdominal pain women, abdominal pain men, vaginal bleeding, weakness, fever, dyspnea, syncope, headache, dizziness, GI bleed, back pain, seizure, CVA, palpatations, mental health, musculoskeletal)? @ -Differential Chest Pain: Stable Angina, Unstable Angina, STEMI, NSTEMI Aortic Dissection, Pneumothorax, Musculoskeletal, Esophageal Spasm GERD, Cholecystitis, Pancreatitis, Zoster, this is not meant to be an all-inclusive list. EKG interpreted by me (3pts min.). @ -Yes which demonstrates sinus rhythm with a rate of 75. [place] interval 181. QRS 84. QTc of 389. No acute ST segment elevations or depressions X-rays interpreted by me (1pt min.). @ -Yes which demonstrates no acute process CT interpreted by me (1pt min.). @ -None done U/S interpreted by me (1pt. min.). @ -None done What testing was considered but not performed or refused? (CT, X-rays, U/S, labs)? Why? @ -None What meds were considered but not given or refused? Why? @ -None Did you discuss the management of the patient with other professionals (professionals i.e. , PA, AIR SURVEILLANCE OPERATOR, lab, RT, psych nurse, social media senior associate, dispensing operator, teacher, facilities officer, bilingual patient support caseworker)? Give summary @ -Spoke with Dr. Villa who will admit the patient Was smoking cessation discussed for >3mins.? @ -No Was critical care preformed (if so, how long)? @ -No Were there social determinants of health that impacted care today? How? (Homelessness, low income, unemployed, alcoholism, drug addiction, transportation, low edu. Level, literacy, decrease access to med. care, mcc, rehab)? @ -No Was there de-escalation of care discussed even if they declined (Discuss DNR or withdrawal of care, Hospice)? DNR status @ -No What co-morbidities impacted this encounter? (DM, HTN, Smoking, COPD, CAD, Cancer, CVA, ARF, Chemo, Hep., AIDS, mental health diagnosis, sleep apnea, morbid obesity)? @ -Coronary artery disease Was patient admitted / discharged? Hospital course, mention meds given and route, prescriptions, significant lab abnormalities, going to OR and other pertinent info. @ -Upon arrival patient seen and evaluated in 8. Thorough history and physical exam was performed. IV access was established. Laboratory studies are conducted. Twelve-lead EKG was performed. Chest x-ray was performed. Results are discussed with the patient. Due to his history I did recommend admission for serial troponins and cardiology evaluation. Spoke with Dr. Villa for the admission Undiagnosed new problem with uncertain prognosis? @ -No Drug Therapy requiring intensive monitoring for toxicity (Heparin, Nitro, Insulin, Cardizem)? @ -No Were any procedures done? @ -No Diagnosis/symptom? @ -Acute chest pain, history of coronary artery disease Acute, or Chronic, or Acute on Chronic? @ -Acute Uncomplicated (without systemic symptoms) or Complicated (systemic symptoms)? @ -Complicated Side effects of treatment? @ -No Exacerbation, Progression, or Severe Exacerbation? @ -No Poses a threat to life or bodily function? How? (Chest pain, [place], [place], pneumonia, PE, COPD, DKA, ARF, appy, cholecystitis, CVA, Diverticulitis, Homicidal, Suicidal, threat to staff... and all critical care pts) @ -No Disposition Clinical Impression: Chest pain Disposition: ADMITTED IP TO THIS HOSP Condition: Stable Is patient prescribed a controlled substance at d/c from ED?: No Time of Disposition: 10:48 Decision to Admit Reason: Admit from EC Decision Date: 12/27/24 Decision Time: 10:48
[2024-12-27 09:41] LABS: INR 1.0 (<1.2); Partial Thromboplastin Time 23.6 sec (22.0-30.0); Prothrombin Time 10.8 sec (10.0-12.5)
[2024-12-27 09:42] LABS: ALT 20 U/L (4-49); African American GFR (CKD) >90 (>60 ml/min/1.73 sqM); Albumin 4.1 g/dL (3.5-5.0); Anion Gap 12 mmol/L; Blood Urea Nitrogen 21 mg/dL (9-20); Calcium 9.4 mg/dL (8.4-10.2); Carbon Dioxide 19 mmol/L (22-30); Chloride 108 mmol/L (98-107); Glucose 102 mg/dL (74-99); Lipase 164 U/L (23-300); Non-African American GFR(CKD) >90 (>60 ml/min/1.73 sqM); Sodium 139 mmol/L (137-145); Total Protein 7.2 g/dL (6.3-8.2)
[2024-12-27 09:44] LABS: AST 34 U/L (17-59); Alkaline Phosphatase 106 U/L (38-126); Magnesium 2.2 mg/dL (1.6-2.3); Potassium 4.7 mmol/L (3.5-5.1)
[2024-12-27] MEDS: ASPIRIN 81 MG PO STA (09:44)
[2024-12-27] MEDS: NITROGLYCERIN SL TABS 0.4 MG TAB SUBLINGUAL STA (09:44)
--- NOTE | 2024-12-27 09:46 | XR ---
EXAMINATION TYPE: XR chest 2V DATE OF EXAM: 12/27/2024 9:40 AM COMPARISON: CT low dose lung 10/20/2023 TECHNIQUE: XR chest 2V Frontal and lateral views of the chest. CLINICAL INDICATION:Male, 69 years old with history of Chest Pain; FINDINGS: Lungs/Pleura: There is no evidence of pleural effusion, focal consolidation, or pneumothorax. Pulmonary vascularity: Unremarkable. Heart/mediastinum: Cardiomediastinal silhouette is unremarkable. Musculoskeletal: Multiple level degenerative disc disease changes seen throughout the spine. IMPRESSION: No acute cardiopulmonary disease/process. [facility], , 12/27/2024 9:44 AM
[2024-12-27 09:50] LABS: NT-Pro-B-Type Natriuretic Pept 103 pg/mL
[2024-12-27] MEDS ORDERED: NALOXONE 0.4 MG/ML 1 ML VIAL IV PRN (10:48)
[2024-12-27] MEDS ORDERED: NITROGLYCERIN SL TABS 0.4 MG TAB SUBLINGUAL PRN (12:15)
[2024-12-27] MEDS ORDERED: ALPRAZolam 0.25 MG TAB PO PRN (12:15)
[2024-12-27] MEDS ORDERED: ALPRAZolam 0.5 MG TAB PO PRN (12:15)
--- NOTE | 2024-12-27 12:25 | P.CRDCN ---
History of Present Illness History of present illness: HISTORY OF PRESENT ILLNESS: This is a 69-year-old male with a past medical history significant for coronary artery disease with previous stenting, hypertension, hyperlipidemia, and obesit y. Patient follows in the office with Dr. Reeves. We have been asked to see the patient in consultation for chest pain. Patient examined at the bedside in the emergency room. Patient states he was driving today when he began to have chest discomfort. He states that he was not having any chest pain prior to today. He reports it felt like a stabbing sensation in the middle of his chest. He also reports that his arm feels numb. He does report shortness of breath which she states is near his baseline. He does report some increased lower extremity edema as well. He continues to report mild discomfort at the time of examination. DIAGNOSTICS: - EKG reveals sinus mechanism with no signs of acute ischemia. - Chest xray negative for acute process. - Laboratory data: WBC 10.97. Hemoglobin 16.3. Platelet count 205. Sodium 139. Potassium 4.7. BUN 21. Creatinine 0.69. Troponin negative x 2. - Current home cardiac medications include lisinopril 20 mg twice a day, carvedilol 25 mg twice a day, amlodipine 10 mg daily, Lipitor 40 mg at night, aspirin 81 mg at night. - Most recent echocardiogram obtained in December 2023 reveals normal EF, mild TR, mild MR. - Patient underwent Lexiscan stress test in November 2023 which revealed small fixed basal lateral wall defect and normal gated SPECT images could represent prior myocardial infarction. No evidence of stress-induced ischemia. - Cardiac catheterization history: December 2009 with stenting to the proximal OM1 and mid OM1. Patient additionally had previous stenting in November 2009 to the proximal LAD REVIEW OF SYSTEMS: At the time of my exam: CONSTITUTIONAL: Denies fever or chills. HEENT: Denies blurred vision, vision changes, or eye pain. Denies hemoptysis CARDIOVASCULAR: Denies chest pain. Denies orthopnea. Denies PND. Denies palpitations RESPIRATORY: Denies shortness of breath. GASTROINTESTINAL: Denies abdominal pain. Denies nausea or vomiting. HEMATOLOGIC: Denies bleeding disorders. GENITOURINARY: Denies any blood in urine. SKIN: Denies pruitis. Denies rash. PHYSICAL EXAM: VITAL SIGNS: Reviewed. GENERAL: Well-developed in no acute distress. HEENT: Head is normocephalic. Pupils are equal, round. Sclerae anicteric. Mucous membranes of the mouth are moist. Neck supple. No JVD or thyromegaly LUNGS: Respirations even and unlabored. Lungs essentially clear to auscultation bilaterally. HEART: Regular rate and rhythm. S1 and S2 heard. Systolic murmur noted ABDOMEN: Soft. Nondistended. Nontender. EXTREMITIES: Normal range of motion. No clubbing or cyanosis. Peripheral pulses intact. 1+ bilateral lower extremity edema NEUROLOGIC: Awake and alert. Oriented x 3. ASSESSMENT: Chest pain concerning for unstable angina Coronary artery disease with previous stenting to the mid OM1 and proximal December 2009 and LAD, November 2009 Hypertension Hyperlipidemia Obesity: BMI 37.6 PLAN: Obtain 2D echo to assess cardiac structure and function Trend troponins Begin IV heparin Resume home cardiac medications including lisinopril, carvedilol, aspirin, and Lipitor Hold amlodipine Repeat BMP in a.m. N.p.o. at midnight Patient to undergo cardiac catheterization tomorrow with Dr. Reeves Further recommendations pending patient course Nurse practitioner note has been reviewed by physician. Signing provider agrees with the documented findings, assessment, and plan of care documented by MAIL OFFICER as a scribe. Past Medical History Past Medical History: Chest Pain / Angina, COPD, Hyperlipidemia, Hypertension, Myocardial Infarction ([place]), Skin Disorder Additional Past Medical History / Comment(s): 08/2023- "I took a colon test at home and they said it came back positive.""pimples all over butt and chest." "I pick at them." Last Myocardial Infarction Date:: 2009 History of Any Multi-Drug Resistant Organisms: None Reported Past Surgical History: Heart Catheterization With Stent, Hernia Repair Additional Past Surgical History / Comment(s): "Lower on both sides hernia." Additional Past Anesthesia/Blood Transfusion Reaction / Comment(s): No hx of blood transfusion. Date of Last Stent Placement:: 01/28/2010 Past Psychological History: No Psychological Hx Reported Smoking Status: Former smoker Past Alcohol Use History: None Reported Past Drug Use History: None Reported - Past Family History Father Family Medical History: No Reported History Medications and Allergies Home Medications Medication Instructions Recorded Confirmed Type Aspirin EC [Ecotrin Low Dose] 81 mg PO HS@199911/10/22 12/27/24 History Atorvastatin Calcium [Lipitor] 40 mg PO HS@199911/10/22 12/27/24 History Nitroglycerin Sl Tabs [Nitrostat] 0.4 mg SL Q5M PRN 11/10/22 12/27/24 History amLODIPine [Norvasc] 10 mg PO HS@199911/10/22 12/27/24 History carvediloL [Coreg] 25 mg PO BID@0800,199911/10/22 12/27/24 History lisinopriL [Prinivil] 20 mg PO BID@0800,199911/10/22 12/27/24 History Tamsulosin [Flomax] 0.4 mg PO DAILY@0800 12/27/24 12/27/24 History methocarbamoL [Robaxin-750] 750 mg PO TID PRN 12/27/24 12/27/24 History Allergies Allergy/AdvReac Type Severity Reaction Status Date / Time No Known Allergies Allergy Verified 12/27/24 08:50 Physical Exam Vitals: Vital Signs Temp Pulse Resp BP Pulse Ox 12/27/24 11:58 74 18 142/96 96 12/27/24 10:18 71 18 125/74 94 L 12/27/24 09:59 73 18 94 L 12/27/24 09:43 72 18 141/82 96 12/27/24 09:18 80 18 145/90 94 L 12/27/24 08:48 97.9 F 82 22 151/91 96 Intake and Output 12/26/24 12/27/24 12/27/24 22:59 06:59 14:59 Other: Weight 108.862 kg Results 12/27/24 09:22 12/27/24 09:22 Cardiac Enzymes 12/27/24 12/27/24 12/27/24 Range/Units 09:22 09:22 11:32 AST 34 (17-59) U/L Troponin I <0.012 <0.012 (0.000-0.034) ng/mL Coagulation 12/27/24 Range/Units 09:22 PT 10.8 (10.0-12.5) sec APTT 23.6 (22.0-30.0) sec CBC 12/27/24 Range/Units 09:22 WBC 10.94 H (4.50-10.00) 10*3/uL RBC 5.36 (4.40-5.60) 10*6/uL Hgb 16.3 (13.0-17.0) g/dL Hct 47.0 (39.6-50.0) % Plt Count 205 (140-440) 10*3/uL Comprehensive Metabolic Panel 12/27/24 Range/Units 09:22 Sodium 139 (137-145) mmol/L Potassium 4.7 (3.5-5.1) mmol/L Chloride 108 H (98-107) mmol/L Carbon Dioxide 19 L (22-30) mmol/L BUN 21 H (9-20) mg/dL Creatinine 0.69 (0.66-1.25) mg/dL Glucose 102 H (74-99) mg/dL Calcium 9.4 (8.4-10.2) mg/dL AST 34 (17-59) U/L ALT 20 (4-49) U/L Alkaline Phosphatase 106 (38-126) U/L Total Protein 7.2 (6.3-8.2) g/dL Albumin 4.1 (3.5-5.0) g/dL Current Medications Generic Name Dose Route Start Last Admin Trade Name Freq PRN Reason Stop Dose Admin Atorvastatin Calcium 40 mg 12/27/24 20:00 Atorvastatin 40 Mg Tab PO HS@1999 [facility] Lisinopril 20 mg 12/27/24 20:00 Lisinopril 20 Mg Tab PO BID@ [facility] Naloxone HCl 0.2 mg 12/27/24 10:48 Naloxone 0.4 Mg/Ml 1 Ml Vial IV Q2M PRN Opioid Reversal Non-Formulary Medication 81 mg 12/27/24 20:00 Aspirin Ec PO HS@1999 [facility] Non-Formulary Medication 25 mg 12/27/24 20:00 Carvedilol [Coreg] PO BID@ [facility] Intake and Output 12/26/24 12/27/24 12/27/24 22:59 06:59 14:59 Other: Weight 108.862 kg Patient Weight 12/28/24 06:59 Weight 108.862 kg 12/27/24 09:22 12/27/24 09:22
[2024-12-27] MEDS: HEPARIN SODIUM 1,000 UN/ML (10ML VL) IV ONE (13:00)
[2024-12-27] MEDS: HEPARIN SODIUM,PORCINE/D5W 25,000 UNIT in EMPTY BAG 1 BAG IV SCH (13:02)
[2024-12-27] MEDS: MORPHINE SULFATE 4 MG/ML SYRINGE IVP STA (17:10)
--- NOTE | 2024-12-27 19:08 | CA ---
Transthoracic Echo Report Name: Urban Maurice Age: 69 Gender: M : 1955 Exam Date: 12/27/2024 13:27 Exam Location: [facility] Ht (in): 67 Wt (lb): 240 Ordering Physician: Jasmine Rice Attending/Referring Phys: [id number], Dwayne [employer] House Operator Alan Hernandez RDCS Procedure CPT: Indications: Unstable angina, history of CAD Cardiac Hx: Technical Quality: Fair Contrast 1: Definity Total Dose (mL): 2 Contrast 2: Total Dose (mL): MEASUREMENTS (Male / Female) Normal Values 2D ECHO LV Diastolic Diameter PLAX 3.4 cm 4.2 - 5.9 / 3.9 - 5.3 cm LV Systolic Diameter PLAX 3.2 cm IVS Diastolic Thickness 1.9 cm 0.6 - 1.0 / 0.6 - 0.9 cm LVPW Diastolic Thickness 1.7 cm 0.6 - 1.0 / 0.6 - 0.9 cm LV Relative Wall Thickness 1.1 RV Internal Dim ED PLAX 3.0 cm LVOT Diameter 2.0 cm Aortic Root Diameter 3.5 cm LA Systolic Diameter LX 3.4 cm 3.0 - 4.0 / 2.7 - 3.8 cm LV Diastolic Volume MOD BP 62.5 cm??? 67 - 155 / 56 - 104 cm??? LV Systolic Volume MOD BP 29.3 cm??? 22 - 58 / 19 - 49 cm??? LV Ejection Fraction MOD BP 53.2 % >= 55 % LV Cardiac Index MOD BP 1062.3 cm???/min???m??? LV Diastolic Volume MOD 4C 59.4 cm??? LV Systolic Volume MOD 4C 29.1 cm??? LV Ejection Fraction MOD 4C 51.1 % LV Cardiac Index MOD 4C 968.5 cm???/min???m??? LV Diastolic Length 4C 8.3 cm LV Systolic Length 4C 6.7 cm LV Diastolic Volume MOD 2C 65.5 cm??? LV Systolic Volume MOD 2C 27.3 cm??? LV Ejection Fraction MOD 2C 58.3 % LV Cardiac Index MOD 2C 1220.5 cm???/min???m??? LV Diastolic Length 2C 8.3 cm LV Systolic Length 2C 6.1 cm LA Volume 36.8 cm??? 18 - 58 / 22 - 52 cm??? LA Volume Index 15.9 cm???/m??? 16 - 28 cm???/m??? M-MODE Aortic Root Diameter MM 3.5 cm LA Systolic Diameter MM 3.7 cm LA Ao Ratio MM 1.1 MV E Point Septal Separation 0.6 cm AV Cusp Separation MM 2.0 cm DOPPLER AV Peak Velocity 133.2 cm/s AV Peak Gradient 7.1 mmHg AV Mean Velocity 91.8 cm/s AV Mean Gradient 3.7 mmHg AV Velocity Time Integral 23.8 cm LVOT Peak Velocity 80.7 cm/s LVOT Peak Gradient 2.6 mmHg LVOT Velocity Time Integral 13.0 cm LVOT Stroke Volume 40.7 cm??? LVOT Stroke Volume Index 18.6 ml/m??? LVOT Cardiac Index 1301.3 cm???/min???m??? AV Area Cont Eq vti 1.7 cm??? AV Area Cont Eq pk 1.9 cm??? MV Peak Velocity 106.1 cm/s MV Peak Gradient 4.5 mmHg MV Mean Velocity 60.9 cm/s MV Mean Gradient 1.7 mmHg MV Velocity Time Integral 21.1 cm MV Area PHT 2.4 cm??? Mitral E Point Velocity 56.5 cm/s Mitral A Point Velocity 95.9 cm/s Mitral E to A Ratio 0.6 MV Deceleration Time 314.6 ms FINDINGS Left Ventricle Left ventricular ejection fraction is estimated at 55-60 %. Normal left ventricular systolic function with no obvious regional wall motion abnormalities. Severely increased left ventricular wall thickness. Left ventricular cavity size normal. Right Ventricle Normal right ventricular size and function. Right Atrium Normal right atrial size. No right atrial thrombus or mass seen. Left Atrium Normal left atrial size. No left atrial thrombus or mass present. Mitral Valve No mitral stenosis. mild mitral regurgitation. Aortic Valve Trileaflet aortic valve. No aortic stenosis. No aortic regurgitation. Tricuspid Valve No tricuspid stenosis. No tricuspid regurgitation. Pulmonic Valve Structurally normal pulmonic valve. No pulmonic stenosis. No pulmonic regurgitation. Pericardium Normal pericardium. No pericardial or pleural effusion. Aorta Normal size aortic root and proximal ascending aorta. CONCLUSIONS Technically difficult study. Definity ECHO contrast used for improved visualization of the endocardial borders (inadequate visualization of two or more contiguous segments). Normal left ventricular size and systolic function Mild mitral regurgitation Previewed by: Dr. Marlin Reeves MD (Electronically Signed) Final Date: 27 December 2024 19:07
[2024-12-27] MEDS: ASPIRIN 81 MG PO SCH (20:02)
[2024-12-27] MEDS: amLODIPine 10 MG TAB PO SCH (20:02)
[2024-12-27] MEDS: ATORVASTATIN 40 MG TAB PO SCH (20:02)
--- NOTE | 2024-12-28 01:17 | HP ---
HISTORY AND PHYSICAL CHIEF COMPLAINT: Chest pain. HISTORY OF PRESENT ILLNESS: This is a 69-year-old gentleman with a past history of multiple medical problems including CAD stent, being followed by Dr. Salter and Dr. Stewart in the outpatient. Complaining of chest pain, which is affecting the anterior part of the chest, heavy in character. EKG did not show acute abnormality. Cardiology saw the patient and planning cardiac cath tomorrow. There is no history of fever, rigors, or chills. PAST MEDICAL HISTORY: History of CAD stent, COPD. Rest of the history and rest of the chart is also reviewed. HOME MEDICATIONS: Reviewed, include Robaxin, dose and rest of medications reviewed. ALLERGIES: None. FAMILY HISTORY: No history of heart disease or strokes in the family. SOCIAL HISTORY: Previous history of smoking. REVIEW OF SYSTEMS: A 14-point review of systems negative except as mentioned earlier. PHYSICAL EXAMINATION: VITAL SIGNS: Pulse 74, blood pressure 142/96, and respirations 18. HEENT: Conjunctivae normal. NECK: No jugular venous distention. CARDIOVASCULAR: S1, S2. RESPIRATIONS: Breath sounds diminished at the bases. ABDOMEN: Soft, nontender. No mass. LEGS: No edema. NERVOUS SYSTEM: Nonfocal. LABORATORY DATA: WBC 10.9. Rest of the labs are noted. ASSESSMENT: 1. Chest pain, possible unstable angina. 2. History of CAD stent. 3. History of chronic obstructive pulmonary disease. 4. Hypertension. 5. Hyperlipidemia. 6. Multiple complex medical issues. RECOMMENDATIONS AND DISCUSSION: I recommend to continue current management and symptomatic treatment. Otherwise, resume the protocol. Resume home medications once they are confirmed. I would recommend Cardiology consultation closely with Cardiology. Cardiac cath tomorrow. Further recommendations to follow. MMODL / IJN: [id number] /
[2024-12-28] MEDS: SODIUM CHLORIDE 0.9% 1,000 ML in EMPTY BAG 1 BAG IV SCH ×2 (02:26→15:36)
[2024-12-28] MEDS: ATORVASTATIN 80 MG TAB PO ONE (05:48)
[2024-12-28] MEDS: ASPIRIN 325 MG TAB PO ONE (05:48)
[2024-12-28] MEDS: HEPARIN SODIUM 1,000 UN/ML (10ML VL) IV PRN (08:53)
[2024-12-28] MEDS: TAMSULOSIN 0.4 MG CAP.ER.24H PO SCH (08:56)
[2024-12-28 11:04] LABS: Basophils # (A) 0.09 X 10*3/uL (0.00-0.10); Basophils % (A) 0.8 %; Eosinophils # (A) 0.49 X 10*3/uL (0.04-0.35); Eosinophils % (A) 4.2 %; HCT 47.7 % (39.6-50.0); HGB 15.6 g/dL (13.0-17.0); Immature Grans, Automated 0.30 %; Lymphocytes # (A) 2.13 X 10*3/uL (0.90-5.00); Lymphocytes % (A) 18.3 %; MCH 29.7 pg (27.0-32.0); MCHC 32.7 g/dL (32.0-37.0); MCV 90.9 FL (80.0-97.0); Monocytes # (A) 0.80 X 10*3/uL (0.20-1.00); Monocytes % (A) 6.9 %; NRBC Per 100 WBC 0 X 10*3/uL (0.00-0.01); Neutrophils # (A) 8.13 X 10*3/uL (1.80-7.70); Neutrophils % (A) 69.5 %; Platelet Count 232 X 10*3/uL (140-440); RBC 5.25 X 10*6/uL (4.40-5.60); RDW 13.1 % (11.5-14.5); WBC 11.67 X 10*3/uL (4.50-10.00)
[2024-12-28 11:23] LABS: Anion Gap 12.30 mmol/L (4.00-12.00); BUN/Creat Ratio 18.80 Ratio (12.00-20.00); Blood Urea Nitrogen 18.8 mg/dL (9.0-27.0); Calcium 8.8 mg/dL (8.7-10.3); Carbon Dioxide 18.7 mmol/L (21.6-31.8); Chloride 108 mmol/L (96-109); Glucose 110 mg/dL (70-110); Potassium 4.5 mmol/L (3.5-5.5); Sodium 139 mmol/L (135-145)
[2024-12-28 12:07] LABS: INR 1.0 sec (0.93-1.11); Prothrombin Time 11.4 sec (9.9-11.9)
[2024-12-28] MEDS: IV FLUID CONTINUATION 1,000 ML IV ONE (12:13)
[2024-12-28] MEDS: HEPARIN SODIUM,PORCINE 10,000 UNIT in SODIUM CHLORIDE 0.9% 1,000 ML IRRIGATION PRN (12:14)
[2024-12-28] MEDS: HEPARIN SODIUM,PORCINE (1 ML) 2,500 UNIT in SODIUM CHLORIDE 0.9% 250 ML IRRIGATION PRN (12:14)
[2024-12-28] MEDS: LIDOCAINE 1% INJ 10MG/ML (20 ML MDV) SQ ONE (12:19)
[2024-12-28] MEDS: MIDAZOLAM 2 MG/2 ML VIAL IVP ONE ×2 (12:19→12:36)
[2024-12-28] MEDS: fentaNYL (PF) 50 MCG/1 ML VIAL IVP ONE (12:19)
[2024-12-28] MEDS: VERAPAMIL SYRINGE (5 MG/10 ML) INTRAARTER ONE (12:19)
[2024-12-28] MEDS: HEPARIN SODIUM 1,000 UN/ML (10ML VL) IVP ONE ×2 (12:26→12:30)
[2024-12-28] MEDS: CLOPIDOGREL 75 MG TAB PO ONE (12:33)
[2024-12-28] MEDS: IOPAMIDOL-370 100ML BTL INJ ONE ×4 (12:39→13:32)
[2024-12-28] MEDS: NITROGLYCERIN 1000MCG/10ML SYRINGE INTRACORON ONE (12:53)
[2024-12-28] MEDS ORDERED: ZOLPIDEM 5 MG TAB PO PRN (13:35)
[2024-12-28] MEDS ORDERED: MAG HYDROX/AL HYDROX/SIMETH 30 ML CUP PO PRN (13:35)
[2024-12-28] MEDS ORDERED: RX INFO: IV CONTRAST WAS GIVEN 1 EACH MISC MISCELLANE PRN (13:35)
[2024-12-28] MEDS ORDERED: ATROPINE SULFATE 0.1 MG/ML 10ML SYRINGE IV PRN (13:35)
[2024-12-28] MEDS ORDERED: NITROGLYCERIN SL TABS 0.4 MG TAB SUBLINGUAL PRN (13:35)
--- NOTE | 2024-12-28 13:47 | P.PN ---
Subjective Progress Note Date: 12/28/24 Cardiac Catheterization: The patient is a 69-year-old male with a known history of CAD, status post multivessel stenting in 2010, history of hypertension and hyperlipidemia who presented with symptoms of chest discomfort suggestive of angina pectoris with no enzymatic changes. Recommendations were made regarding cardiac catheterization, the risks and the complications were discussed with the patient who is in full understanding and agreement. Procedure Description: Patient was brought to [facility] stores in fasting semi-sedated state after receiving Fentanyl and Benadryl achieiving moderate conscious sedated state. Using Xylocaine Anesthesia and modified Seldinger technique, a 6-Kosovan sheath was introduced in the right radial artery . Subsequently, selective coronary angiography was performed using a 5-Kosovan 3.5 bend Kevin catheter. Multiple views of the coronary artery including hemiaxial views were obtained. The right Kevin catheter was used to cross the aortic valve and LVEDP was calculated. PCI: After removing the catheters a 6 Kosovan CLS 3.5 guiding catheter was introduced into the system and after cannulating the left main a 0.014 BMW J-wire was advanced in the first diagonal branch. Subsequently a [employer] eye IVUS catheter was introduced and revealed a calcified lesion with a distal lumen of 2.5 mm. After removing the balloon a 2.5 x 12 mm trek balloon was advanced and 2 inflation at 8 lizett were done and after removing the balloon the IVUS catheter was reintroduced and images were obtained and subsequently a 2.5 x 15 mm Xience tila point stent was advanced and deployed at 14 lizett. Repeat IVUS imaging revealed good apposition of the stent. At that point the wire was removed and a 0.014 BMW J-wire was advanced into the LAD and positioned distally. The IVUS catheter was introduced and revealed significant stenosis distal to the prior stent with the distal lumen measuring 2.5 mm in diameter. The 2.5 x 12 mm balloon was advanced and inflation was done at 8 lizett. Subsequently a 2.5 x 23 mm Xience Skypoint stent was deployed at 16 lizett. Repeat IVUS imaging was performed and revealed good apposition of the stent distally. There was mild under deployment proximally. A 2.75 x 15 mm NC trek balloon was advanced and 2 inflations at 10 lizett were done. After that the wire was removed and images were obtained and revealed stable successful stenting. Following that, catheter and sheath were removed. Hemostasis was obtained with deployment of vascular band . There was no immediate complication. Patient was returned to room in stable condition. Of note, the patient received a total of 9000 units of intravenous heparin as well as intra-arterial verapamil. His ACT was monitored. He received an oral loading dose of clopidogrel. He had chest discomfort with the inflations that improved at the end of the procedure but no EKG changes. Findings: Left main: This is a large size vessel, short, bifurcating into LAD and left circumflex, left main has no obstructive disease. LAD: This is a large size vessel giving rise to a large diagonal branch proxima lly the stented segment and the LAD proximally is patent distal to the stent there is a 90% stenosis and beyond that the vessel is diffusely disease with small caliber. If there is diagonal branch has a 90% stenosis in the proximal segment. There is another 80% stenosis in the distal segment of the vessel. Left circumflex: This is a dominant vessel giving rise to a large obtuse marginal branch and distally bifurcating into PDA and PLV. The stented segment in the OM is patent with mild in-stent restenosis. The distal vessel has no high-grade stenosis. RCA: This is a small nondominant vessel that has diffuse intimal disease gives rise to an acute marginal branch that has no high-grade stenosis Left Ventriculogram: Not performed Hemodynamics: There was no gradient across the aortic valve, LVEDP was 14-16 mmHg Conclusion: 1. Patent stent in the OM 2. Patent stent in the LAD with significant disease distal to the stent and diffuse disease distally 3. Significant stenosis in the first diagonal branch 4. Successful stenting of the first diagonal branch with reduction of stenosis from 90% to less than 5% with RICH-3 flow 5. Successful stenting of the mid LAD with reduction of stenosis from 90% to less than 5% with RICH-3 flow. The patient has diffuse disease distal to the st ent and the decision was made to treated medically because of the small caliber of the vessel. Recommendations: The patient will continue on aspirin and clopidogrel for at least 6 months without any interruption in addition to aggressive coronary risks modification, attempting to maintain LDL below 70 mg/dL. His medical regimen will be optimized and depending on his symptoms further recommendations will be made. The findings and the recommendations were discussed with the patient and he was in full understanding and agreement. Duration of sedation is 63 minutes. Objective - Vital Signs Vital signs: Vital Signs Temp 98.0 F 12/28/24 07:00 Pulse 65 12/28/24 07:00 Resp 20 12/28/24 07:00 BP 123/74 12/28/24 07:00 Pulse Ox 96 12/28/24 07:00 FiO2 Intake & Output 12/27/24 12/28/24 12/28/24 18:59 06:59 18:59 Intake Total 245.493 683.153 Balance 245.493 683.153 Weight 108.862 kg Intake: IV 550 Intake, IV Titration 65.493 133.153 Amount Heparin Sodium,Porcine/ 65.493 133.153 D5w 25,000 unit In Empty Bag 1 bag @ 9.185 UNIT/KG /HR 9.999 mls/hr IV .Q24H [facility] Rx#:[id number] Oral 180 Other: Voiding Method Toilet # Voids 1 - Labs CBC & Chem 7: 12/28/24 06:24 12/28/24 06:24 Labs: Abnormal Lab Results - Last 24 Hours (Table) 12/27/24 12/28/24 12/28/24 Range/Units 18:57 06:24 06:24 WBC 11.67 H (4.50-10.00) X 10*3/uL Neutrophils # 8.13 H (1.80-7.70) X 10*3/uL Eosinophils # 0.49 H (0.04-0.35) X 10*3/uL APTT 41.4 H (22.0-30.0) sec Carbon Dioxide 18.7 L (21.6-31.8) mmol/L Anion Gap 12.30 H (4.00-12.00) mmol/L 12/28/24 Range/Units 06:24 WBC (4.50-10.00) X 10*3/uL Neutrophils # (1.80-7.70) X 10*3/uL Eosinophils # (0.04-0.35) X 10*3/uL APTT 32.3 H (22.0-30.0) sec Carbon Dioxide (21.6-31.8) mmol/L Anion Gap (4.00-12.00) mmol/L
[2024-12-28] MEDS: ISOSORBIDE MONONITRATE ER 30 MG TAB.ER.24H PO SCH (15:40)
[2024-12-28] MEDS: amLODIPine 5 MG TAB PO SCH (22:28)
--- NOTE | 2024-12-29 02:30 | PN ---
PROGRESS NOTE DATE OF SERVICE: 12/28/2024 SUBJECTIVE: This is a 69-year-old gentleman admitted with chest pain, unstable angina, had cardiac catheterization and stenting today. Optimize medical treatment is recommended. The patient will be closely monitored. No chest pain, no palpitation. OBJECTIVE: VITAL SIGNS: On exam, pulse is 67, blood pressure 120/77, respirations 16. CHEST: Clear to auscultation. CARDIOVASCULAR SYSTEM: S1 and S2. ABDOMEN: Soft. NERVOUS SYSTEM: Nonfocal. LABS: Reviewed. ASSESSMENT: 1. Chest pain, unstable angina, status post cardiac arrest and stenting. 2. History of CAD, stent. 3. History of COPD. 4. Hypertension. 5. Hyperlipidemia. 6. Multiple complex medical issues. RECOMMENDATIONS: Recommend to continue current management, and continue symptomatic treatment. Target LDL less than 70. Otherwise, I would recommend repeat labs. Closely follow with Cardiology. Continue the antiplatelet agents. Guarded prognosis. Further recommendations to follow. MMODL / IJN: [id number] /
[2024-12-29 07:52] VITALS: BP 116/76; PULSE 74; RESP 17; TEMP 97.8
[2024-12-29] MEDS: CLOPIDOGREL 75 MG TAB PO SCH (08:39)
--- NOTE | 2024-12-29 09:58 | P.PN ---
Subjective Progress Note Date: 12/29/24 This is a 69-year-old male with a past medical history significant for coronary artery disease with previous stenting, hypertension, hyperlipidemia, and obesity. Patient follows in the office with Dr. Reeves. We have been asked to see the patient in consultation for chest pain. Patient examined at the bedside in the emergency room. Patient states he was driving today when he began to have chest discomfort. He states that he was not having any chest pain prior to today. He reports it felt like a stabbing sensation in the middle of his chest. He also reports that his arm feels numb. He does report shortness of breath which she states is near his baseline. He does report some increased lower ext remity edema as well. He continues to report mild discomfort at the time of examination. DIAGNOSTICS: - EKG reveals sinus mechanism with no signs of acute ischemia. - Chest xray negative for acute process. - Laboratory data: WBC 10.97. Hemoglobin 16.3. Platelet count 205. Sodium 139. Potassium 4.7. BUN 21. Creatinine 0.69. Troponin negative x 2. - Current home cardiac medications include lisinopril 20 mg twice a day, carvedilol 25 mg twice a day, amlodipine 10 mg daily, Lipitor 40 mg at night, aspirin 81 mg at night. - Most recent echocardiogram obtained in December 2023 reveals normal EF, mild TR, mild MR. - Patient underwent Lexiscan stress test in November 2023 which revealed small fixed basal lateral wall defect and normal gated SPECT images could represent prior myocardial infarction. No evidence of stress-induced ischemia. - Cardiac catheterization history: December 2009 with stenting to the proximal OM1 and mid OM1. Patient additionally had previous stenting in November 2009 to the proximal LAD 12/29/2024 Patient was seen and examined sitting up in a chair. He is overall feeling fairly well. Continues to have dyspnea on exertion but stable compared to his baseline. Has had no chest discomfort. Underwent cardiac catheterization yesterday that showed patent stent in the OM, patent stent in the LAD with significant disease in the mid LAD that was distal to the stent and diffuse disease distally, significant stenosis in the first diagonal branch. Patient subsequently underwent successful stenting of the first diagonal branch and the mid LAD PHYSICAL EXAM: VITAL SIGNS: Reviewed. GENERAL: Well-developed in no acute distress. HEENT: Head is normocephalic. Pupils are equal, round. Sclerae anicteric. Mucous membranes of the mouth are moist. Neck supple. No JVD or thyromegaly LUNGS: Respirations even and unlabored. Lungs essentially clear to auscultation bilaterally. HEART: Regular rate and rhythm. S1 and S2 heard. Systolic murmur noted ABDOMEN: Soft. Nondistended. Nontender. EXTREMITIES: Normal range of motion. No clubbing or cyanosis. Peripheral pulses intact. 1+ bilateral lower extremity edema right radial puncture site soft, clean, dry and intact with no ecchymosis or hematoma pulse palpable NEUROLOGIC: Awake and alert. Oriented x 3. ASSESSMENT: Chest pain concerning for unstable angina status post cardiac catheterization showing significant disease in the diagonal branch of the LAD and the mid LAD status post stenting Coronary artery disease with previous stenting to the mid OM1 and proximal December 2009 and LAD, November 2009 Hypertension Hyperlipidemia Obesity: BMI 37.6 PLAN: From cardiology's perspective patient will continue aspirin and clopidogrel for at least 6 months without any interruption in addition to aggressive cardiac risk modification. Attempt to maintain LDL below 70. From our standpoint patient may be discharged home. He will follow-up in the office in about a week. [employer] note has been reviewed, I agree with a documented findings and plan of care. Patient was seen and examined. Objective - Vital Signs Vital signs: Vital Signs Temp 97.8 F 12/29/24 07:00 Pulse 74 12/29/24 07:00 Resp 17 12/29/24 07:00 BP 116/76 12/29/24 07:00 Pulse Ox 95 12/29/24 07:00 FiO2 Intake & Output 12/28/24 12/29/24 12/29/24 18:59 06:59 18:59 Intake Total 1083.153 180 Balance 1083.153 180 Intake: IV 550 Intake, IV Titration 533.153 Amount Heparin Sodium,Porcine/ 133.153 D5w 25,000 unit In Empty Bag 1 bag @ 9.185 UNIT/KG /HR 9.999 mls/hr IV .Q24H [facility] Rx#:[id number] Sodium Chloride 0.9% 1, 400 000 ml In Empty Bag 1 bag @ 1 ML/KG/HR 108.862 mls /hr IV .Q9H12M [facility] Rx#: [id number] Oral 180 Other: Voiding Method Toilet # Voids 3 # Bowel Movements 1 - Labs CBC & Chem 7: 12/28/24 06:24 12/28/24 06:24 Labs: Abnormal Lab Results - Last 24 Hours (Table) 12/28/24 12/28/24 Range/Units 06:24 06:24 WBC 11.67 H (4.50-10.00) X 10*3/uL Neutrophils # 8.13 H (1.80-7.70) X 10*3/uL Eosinophils # 0.49 H (0.04-0.35) X 10*3/uL Carbon Dioxide 18.7 L (21.6-31.8) mmol/L Anion Gap 12.30 H (4.00-12.00) mmol/L
[2024-12-29 11:04] LABS: Basophils # (A) 0.05 X 10*3/uL (0.00-0.10); Basophils % (A) 0.5 %; Eosinophils # (A) 0.31 X 10*3/uL (0.04-0.35); Eosinophils % (A) 3.3 %; HCT 39.0 % (39.6-50.0); HGB 12.7 g/dL (13.0-17.0); Immature Grans, Automated 0.30 %; Lymphocytes # (A) 1.50 X 10*3/uL (0.90-5.00); Lymphocytes % (A) 16.0 %; MCH 29.9 pg (27.0-32.0); MCHC 32.6 g/dL (32.0-37.0); MCV 91.8 FL (80.0-97.0); Monocytes # (A) 0.82 X 10*3/uL (0.20-1.00); Monocytes % (A) 8.8 %; NRBC Per 100 WBC 0 X 10*3/uL (0.00-0.01); Neutrophils # (A) 6.64 X 10*3/uL (1.80-7.70); Neutrophils % (A) 71.1 %; Platelet Count 193 X 10*3/uL (140-440); RBC 4.25 X 10*6/uL (4.40-5.60); RDW 13.4 % (11.5-14.5); WBC 9.35 X 10*3/uL (4.50-10.00)
[2024-12-29 11:21] LABS: Anion Gap 9.90 mmol/L (4.00-12.00); BUN/Creat Ratio 21.56 Ratio (12.00-20.00); Blood Urea Nitrogen 19.4 mg/dL (9.0-27.0); Calcium 8.4 mg/dL (8.7-10.3); Carbon Dioxide 21.1 mmol/L (21.6-31.8); Chloride 112 mmol/L (96-109); Glucose 105 mg/dL (70-110); Potassium 4.1 mmol/L (3.5-5.5); Sodium 143 mmol/L (135-145)
[2024-12-29 13:05] VITALS: BMI 37.5
--- NOTE | 2024-12-31 14:52 | P.DS ---
Providers Date of admission: 12/27/24 10:48 Expected date of discharge: 12/29/24 Attending physician: Rayna Khan Consults: 12/27/24 10:48 Consult Physician Urgent Consulting Provider: Rae Lugo Consult Reason/Comments: acute chest pain Do you want consulting provider notified?: Yes 12/28/24 13:35 Consult Physician Routine Consulting Provider: Rae Lugo Consult Reason/Comments: Post Interventional patient Do you want consulting provider notified?: Already Contacted Primary care physician: Yolanda Brown Hospital Course: Final diagnosis Chest pain, unstable angina, status post cardiac catheterization with stenting to the diagonal branch and LAD Obesity with a BMI of 37.6 History of coronary artery disease with stenting History of COPD, not in exacerbation Hyperlipidemia Hypertension GI prophylaxis DVT prophylaxis Full code Discharge disposition Patient is being discharged in a stable condition with guarded prognosis to home. Patient will follow-up with Dr. Brown in the outpatient setting upon discharge. Patient is to continue with current medications and outpatient follow-up with cardiology as scheduled. Total time taken is greater than 35 minutes. Hospital course This is a 69-year-old male who was recently admitted with chest pain and is status post stenting to the diagonal branch as well as stenting to the LAD. Patient denies any further chest pain has been reevaluated by cardiology recommending aspirin and Plavix for minimal 6 months with close outpatient follow-up. Patient has been cleared and would like to go home. Please refer to consultation notes for further HPI. Currently no reports of chest pain, shortness of breath, or palpitations. Patient is afebrile. No reports of nausea or vomiting and patient is tolerating diet. Patient will be discharged home today. Guarded prognosis Physical exam: Gen: This is a 69-year-old male who is awake, alert and oriented x 3, well- developed, elderly appearing, obese HEENT: Head is atraumatic, normocephalic. Pupils equal, round. Sclerae is anicteric. NECK: Supple. No JVD. No lymphadenopathy. No thyromegaly. LUNGS: Clear to auscultation. No wheezes or rhonchi. No intercostal retractions. HEART: Regular rate and rhythm. No murmur. ABDOMEN: Soft. Obese bowel sounds are present. No masses. No tenderness. EXTREMITIES: No pedal edema. No calf tenderness. NEUROLOGICAL: Patient is awake, alert and oriented x3. Cranial nerves 2 through 12 are grossly intact. Please refer to medication reconciliation sheet for a list of medications. The impression and plan of care has been dictated by Elvia Ann, Nurse Practitioner as directed. Dr. Mayi MD I have performed a history and examination and MDM of this patient, discussed the same with the dictator, and agree with the dictator's assessment and plan as written ,documented as a scribe. Based on total visit time, I have performed more than 50% of the visit. Patient Condition at Discharge: Stable Plan - Discharge Summary Discharge Rx Participant: No New Discharge Prescriptions: New Isosorbide Mononitrate ER [Imdur] 30 mg PO DAILY #90 tab amLODIPine [Norvasc] 5 mg PO HS@1999 #90 tab Clopidogrel [Plavix] 75 mg PO DAILY #90 tab Continue Aspirin EC [Ecotrin Low Dose] 81 mg PO HS@1999 lisinopriL [Prinivil] 20 mg PO BID@ carvediloL [Coreg] 25 mg PO BID@ Nitroglycerin Sl Tabs [Nitrostat] 0.4 mg SL Q5M PRN PRN Reason: Chest Pain Atorvastatin Calcium [Lipitor] 40 mg PO HS@1999 Discontinued amLODIPine [Norvasc] 10 mg PO HS@1999 No Action Tamsulosin [Flomax] 0.4 mg PO DAILY@799 methocarbamoL [Robaxin-750] 750 mg PO TID PRN PRN Reason: Muscle Spasm Discharge Medication List Aspirin EC [Ecotrin Low Dose] 81 mg PO HS@199911/10/22 [History] Atorvastatin Calcium [Lipitor] 40 mg PO HS@199911/10/22 [History] Nitroglycerin Sl Tabs [Nitrostat] 0.4 mg SL Q5M PRN 11/10/22 [History] carvediloL [Coreg] 25 mg PO BID@799,199911/10/22 [History] lisinopriL [Prinivil] 20 mg PO BID@799,199911/10/22 [History] Tamsulosin [Flomax] 0.4 mg PO DAILY@0800 12/27/24 [History] methocarbamoL [Robaxin-750] 750 mg PO TID PRN 12/27/24 [History] Clopidogrel [Plavix] 75 mg PO DAILY #90 tab 12/29/24 [Rx] Isosorbide Mononitrate ER [Imdur] 30 mg PO DAILY #90 tab 12/29/24 [Rx] amLODIPine [Norvasc] 5 mg PO HS@1999 #90 tab 12/29/24 [Rx] Follow up Appointment(s)/Referral(s): Marlin Reeves MD [STAFF PHYSICIAN] - 1 Week Nonstaff,Physician [REFERRING] - 1-2 days Patient Instructions/Handouts: After Radial Heart Catheterization (GEN) Discharge Disposition: HOME SELF-CARE
== END 2024-12-29 11:45 | disposition home or self-care (01) ==
LOC: EC 08:47 → 6NMEDSUR 10:48
PROVIDERS: ADMIT Hospitalist; ATTEND Hospitalist
DX: I25.110 Atherosclerotic heart disease of native coronary artery with unstable angina pectoris (principal); T82.855A Stenosis of coronary artery stent, initial encounter; Y83.1 Surgical operation with implant of artificial internal device as the cause of abnormal reaction of the patient, or of later complication, without mention of misadventure at the time of the procedure; I10 Essential (primary) hypertension; E78.5 Hyperlipidemia, unspecified; E66.9 Obesity, unspecified; Z68.37 Body mass index [BMI] 37.0-37.9, adult; J44.9 Chronic obstructive pulmonary disease, unspecified; I25.2 Old myocardial infarction; Z79.82 Long term (current) use of aspirin; Z79.02 Long term (current) use of antithrombotics/antiplatelets; Z79.899 Other long term (current) drug therapy; Z87.891 Personal history of nicotine dependence; Z86.74 Personal history of sudden cardiac arrest
CPT/HCPCS: 36415; 71046; 80048; 80053; 83690; 83735; 83880; 84484; 85025; 85610; 85730; 92978; 92979; 93005; 93306; 93458; 96365; 96366; 96376; 99285